=== PATIENT | male | born 1970 | race Two or more races ===

== ENCOUNTER 2018-04-05 20:38 | Emergency (ER) | payer OTHER ==
[~2018-04-05] VITALS: Ht 182.9 cm; Wt 90.7 kg
--- NOTE | 2018-04-05 21:42 | NUR ---
Patient is resting comfortably in bed with eyes closed
--- NOTE | 2018-04-06 01:00 | NUR ---
PATIENT NOTED SLEEPING IN BED NO S/S ANY DISTRESS.
--- NOTE | 2018-04-06 01:57 | NUR ---
Pt sleeping in bed, no acute signs of distress.
--- NOTE | 2018-04-06 06:00 | NUR ---
RESOURCE GIVEN TO PATIENT FOR HOMELESS SHELTERS AND OTHER RESOURCES.
[2018-04-06 06:20] VITALS: BP 121/68
--- NOTE | 2018-04-06 06:20 | NUR ---
Patient discharged to home in stable conditon. Written and verbal after care instructions given. Patient verbalizes understanding of instructions.
== END 2018-04-06 06:25 | disposition home or self-care (01) ==
LOC: ER 20:39
DX: F10.129 Alcohol abuse with intoxication, unspecified (principal); K40.90 Unilateral inguinal hernia, without obstruction or gangrene, not specified as recurrent; Z59.0 Homelessness
CPT/HCPCS: A4663